=== PATIENT | female | born 1995 | race Two or more races ===

== ENCOUNTER 2021-03-09 10:22 | Emergency (ER) | payer SELFPAY ==
[~2021-03-09] VITALS: Ht 165.1 cm; Wt 64.0 kg
[2021-03-09 10:40] VITALS: BP 136/68
--- NOTE | 2021-03-09 11:01 | PHYS DOC ---
Past Medical History Past Surgical History: No Surgical History General Adult EDM: Chief Complaint: OTHER COMPLAINTS HPI: HPI: Patient is a 25 year old presenting with 5 months of intermittent perianal pain. Pain is described as sharp and intermittent. Worsened with wiping after a bowel movement. Gets worse if she is constipated. She has had times of seeing bright blood on the toilet paper. Typically has daily bowel movements is not chronically constipated. Denies vaginal pain nausea, vomiting, diarrhea, weight loss, fever, chills, having anal sex, inserting any objects into her anus, hematochezia, and melena. Patient does not see a doctor regularly. Last doctor she saw was for her Pap smear 2 to 3 months ago. Cannot remember her last normal menstrual period however does not believe there is any chance she is . Uses oral contraceptives Review of Systems: Review of Systems: Constitutional: Denies fever or chills HENT: Denies nasal congestion or sore throat Cardiovascular: Denies chest pain or palpitations GI: Denies abdominal pain, nausea, or vomiting, diarrhea or constipation : Denies dysuria or hematuria, vaginal pain, discharge. Musculoskeletal: Denies back pain or joint pain Complete systems were reviewed and found to be within normal limits, except as documented in this note. Heart Score: C/O Chest Pain: No Physical Exam: PE: Constitutional: Well developed, well nourished, no acute distress, non-toxic appearance HENT: Normocephalic, atraumatic Eyes: PERRL,conjunctiva normal, no discharge Neck: No deformity no tenderness Lungs & Thorax: No respiratory distress, equal chest rise and fall Abdomen: Soft, no tenderness : Skin: Warm, dry, no erythema, no rash Back: No tenderness, no deformity Extremities: No deformity, ROM intact, no edema Neurologic: Alert and oriented X 3, no focal deficits noted Psychologic: Affect normal, judgment normal Current Patient Data: Vital Signs: Vital Signs Date Time Temp Pulse Resp B/P (MAP) Pulse Ox O2 Delivery O2 Flow Rate FiO2 03/09/21 10:40 98.7 89 20 136/68 (90) 100 Room Air 98.7 EKG: EKG: [] Radiology/Procedures: Radiology/Procedures: [] Course & Med Decision Making: Course & Med Decision Making Pertinent Labs and Imaging studies reviewed. (See chart for details) Patient presents with 5 months of intermittent sharp perianal pain. Exam showed .....patient stable for discharge with outpatient follow-up with PCP. Discussed findings and plan with patient, who acknowledges understanding and agreement. William Disclaimer: William Disclaimer: This electronic medical record was generated, in whole or in part, using a voice recognition dictation system. Departure Departure Impression: Primary Impression: Rectal pain Disposition: HOME / SELF CARE / HOMELESS Condition: STABLE Patient Instructions: Anal Fissure, Adult, [id number] Additional Instructions: Increase fluid hydration. Scripts Nitroglycerin (RECTIV) 30 Gm Oint...g. 1 INCH RC Q12HR PRN for RECTAL PAIN, #30 GM Prov: ELVIS BAHENA DO 03/09/21 Sennosides/Docusate Sodium (Colace 2-in-1 Tablet) 1 Each Tablet 1 TAB PO QHS for 30 Days, #30 TAB 0 Refills Prov: ELVIS BAHENA DO 03/09/21 ELVIS BAHENA DO Mar 09, 2021 11:01
[2021-03-09] MEDS ORDERED: NITR30OI RC (11:33)
[2021-03-09] MEDS ORDERED: SENN-121 PO (11:33)
== END 2021-03-09 12:10 | disposition home or self-care (01) ==
LOC: ER 10:22
DX: K62.89 Other specified diseases of anus and rectum (principal)
CPT/HCPCS: 99283